=== PATIENT | female | born 1945 | race Caucasian/White ===

== ENCOUNTER 2020-10-22 07:20 | Outpatient (REF) | payer MEDICARE, SELFPAY ==
--- NOTE | ~2020-10-22 | MM_ITS ---
EXAMINATION: MM SCREENING DIGITAL BREAST TOMOSYNTHESIS, BILATERAL CLINICAL INFORMATION: Screening. Asymptomatic. The lifetime risk of breast cancer based on the Tyrer-Cuzick Model is 6%. COMPARISON: Mammography: 08/13/2019, 08/07/2018, 08/01/2017, 07/25/2016 TECHNIQUE: Digital breast tomosynthesis is performed in both the craniocaudal and mediolateral oblique views along with computer-aided detection (CAD). Synthesized 2D images are generated from the tomosynthesis. FINDINGS: The breasts are heterogeneously dense, which may obscure small masses (ACR BI-RADS breast composition Category c). Parenchymal pattern is similar to prior studies considering variation in shifting fibroglandular densities with positioning from year to year. Again, there is fibronodular parenchymal pattern with scattered similar asymmetry on each side. There is no developing density or interval significant mass or architectural abnormality. Benign-appearing loosely grouped calcifications are again noted central left breast. The axilla and skin contours are unremarkable. No significant changes. MM/MM tomosynthesis screening BI IMPRESSION: No significant changes from prior exams. ASSESSMENT: BI-RADS 2: Benign RECOMMENDATION: Routine annual mammography screening. This patient's information was entered into a reminder system with a target due date for their next mammogram.
== END 2020-10-22 07:21 | disposition home or self-care (01) ==
LOC: HO.MAMMO 07:20
PROVIDERS: PCP Internal Medicine; Visit Provider Internal Medicine
DX: Z12.31 Encounter for screening mammogram for malignant neoplasm of breast (principal)
CPT/HCPCS: 77063; 77067

== ENCOUNTER 2021-02-27 08:03 | Outpatient (REF) | payer MEDICARE, SELFPAY ==
--- NOTE | ~2021-02-27 | MM_ITS ---
EXAMINATION: BONE DENSITOMETRY CLINICAL INDICATION: Screening for osteoporosis. COMPARISON: Previous BD dated 11/12/2018 and baseline BD dated 09/17/2006. TECHNIQUE: Using a [employer] DXA System (software version: 13.1) manufactured by [employer], dual-energy x-ray absorptiometry was performed of the lumbar spine and left hip. The images are of good technical quality. Summary results are attached. FINDINGS: AP SPINE L1-L4: Current: BMD 0.956 g/cm2, Z-score -0.5, T-score -1.9, osteopenia, 4.8% increase from previous, 4.9% increase from baseline (<5% change is not significant). Prior: BMD 0.912 g/cm2. Baseline: BMD 0.911 g/cm2. LEFT FEMUR, NECK: Current: BMD 0.773 g/cm2, Z-score -0.2, T-score -1.9, osteopenia. Prior: BMD 0.771 g/cm2. Baseline: BMD 0.815 g/cm2. LEFT FEMUR, TOTAL: Current: BMD 0.818 g/cm2, Z-score -0.1, T-score -1.5, osteopenia, 0.1% decrease from previous, 5.7% decrease from baseline (<5% change is not significant). Prior: BMD 0.819 g/cm2. Baseline: BMD 0.867 g/cm2. IDENTIFIED RISK FACTORS: Early menopause, family history (parent hip fracture), history of fracture (adult), hysterectomy, left oophorectomy, secondary osteoporosis. HISTORY OF FRACTURE: Wrist. MEDICATIONS: Calcium, vitamin D, bisphosphonate. MM/XR DEXA axial skeleton IMPRESSION: 1. DIAGNOSIS: Osteopenia based on the lowest T-score value of -1.9 in the lumbar spine and femur neck applying World Health Organization criteria. 2. 10-YEAR FRACTURE RISK PREDICTION, FRAX: Major osteoporotic fracture (clinical spine, forearm, hip or shoulder) 29.8%. Hip fracture 14.9%. 3. Treatment Recommendations: NOF guidelines recommend consideration for treatment in postmenopausal women and men age 50 and older presenting with the following: -A hip or vertebral (clinical or morphometric) fracture. -T-score less than or equal to -2.5 at the femoral neck or spine after appropriate evaluation to exclude secondary causes. -Low bone mass at the hip or spine and a 10-year fracture probability by FRAX of greater than or equal to 3% for hip fracture or greater than or equal to 20% for major osteoporotic fracture based on the [place] adapted WHO algorithm. 4. Other Recommendations: All treatment decisions require clinical judgment and consideration of individual patient factors, including patient preferences, comorbidities, previous drug use, risk factors not captured in the FRAX model (e.g. frailty, falls, vitamin D deficiency, increased bone turnover, interval significant decline in bone density) and possible under or overestimation of fracture risk by FRAX. Additional medical evaluation for secondary cause of low bone mineral density may be appropriate. FUTURE SCAN RECOMMENDATION: People with diagnosed cases of osteoporosis or at high risk for fracture should have regular bone mineral density tests. For patients eligible for Medicare, routine testing is allowed once every 2 years. The testing frequency can be increased to one year for patients who have rapidly progressing disease, those who are receiving or discontinuing medical therapy to restore bone mass, or have additional risk factors.
== END 2021-02-27 08:04 | disposition home or self-care (01) ==
LOC: HO.MAMMO 08:03
PROVIDERS: PCP Internal Medicine; Visit Provider Internal Medicine
DX: Z13.820 Encounter for screening for osteoporosis (principal); M81.0 Age-related osteoporosis without current pathological fracture; M85.80 Other specified disorders of bone density and structure, unspecified site; Z78.0 Asymptomatic menopausal state; Z98.890 Other specified postprocedural states; Z90.721 Acquired absence of ovaries, unilateral; Z79.899 Other long term (current) drug therapy
CPT/HCPCS: 77080

== ENCOUNTER 2021-10-23 08:32 | Outpatient (REF) | payer MEDICARE, SELFPAY ==
--- NOTE | ~2021-10-23 | MM_ITS ---
EXAMINATION: MM SCREENING DIGITAL BREAST TOMOSYNTHESIS, BILATERAL CLINICAL INFORMATION: Screening. Asymptomatic. The lifetime risk of breast cancer based on the Tyrer-Cuzick Model is 6%. COMPARISON: Mammography: 10/22/2020, 08/13/2019, 08/07/2018 TECHNIQUE: Digital breast tomosynthesis is performed in both the craniocaudal and mediolateral oblique views along with computer-aided detection (CAD). Synthesized 2D images are generated from the tomosynthesis. FINDINGS: The breasts are heterogeneously dense, which may obscure small masses (ACR BI-RADS breast composition Category c). There is fibronodular parenchymal pattern and scattered stable asymmetries similar to prior studies. No developing density or significant mass or architectural abnormality. The loosely grouped calcifications central left breast are similar to prior studies. No abnormal calcifications. The axilla and skin contours are unremarkable. There are no significant changes from prior exams. MM/MM tomosynthesis screening BI IMPRESSION: No mammographic evidence of malignancy. ASSESSMENT: BI-RADS 2: Benign RECOMMENDATION: Routine annual mammography screening. This patient's information was entered into a reminder system with a target due date for their next mammogram.
== END 2021-10-23 08:33 | disposition home or self-care (01) ==
LOC: HO.MAMMO 08:32
PROVIDERS: PCP Internal Medicine; Visit Provider Internal Medicine
DX: Z12.31 Encounter for screening mammogram for malignant neoplasm of breast (principal)
CPT/HCPCS: 77063; 77067

== ENCOUNTER 2022-11-04 07:58 | Outpatient (REF) | payer MEDICARE, SELFPAY ==
--- NOTE | ~2022-11-04 | MM_ITS ---
EXAMINATION: MM SCREENING DIGITAL BREAST TOMOSYNTHESIS, BILATERAL CLINICAL INFORMATION: Screening. Asymptomatic. The lifetime risk of breast cancer based on the Tyrer-Cuzick Model is 5%. COMPARISON: Mammography: 10/23/2021, 10/22/2020, 08/13/2019 TECHNIQUE: Digital breast tomosynthesis is performed in both the craniocaudal and mediolateral oblique views along with computer-aided detection (CAD). Synthesized 2D images are generated from the tomosynthesis. FINDINGS: The breasts are heterogeneously dense, which may obscure small masses (ACR BI-RADS breast composition Category c). Parenchymal pattern is similar to prior studies. There is fibronodular pattern with scattered stable asymmetries similar to prior exams. There are no significant masses, abnormal calcifications, or other abnormalities. No developing density or architectural abnormality. Loosely grouped benign calcifications again seen central left breast. The axilla and skin contours are unremarkable. MM/MM tomosynthesis screening BI IMPRESSION: No mammographic evidence of malignancy. ASSESSMENT: BI-RADS 2: Benign RECOMMENDATION: Routine annual mammography screening. This patient's information was entered into a reminder system with a target due date for their next mammogram.
== END 2022-11-04 07:59 | disposition home or self-care (01) ==
LOC: HO.MAMMO 07:58
PROVIDERS: PCP Internal Medicine; Visit Provider Internal Medicine
DX: Z12.31 Encounter for screening mammogram for malignant neoplasm of breast (principal)
CPT/HCPCS: 77063; 77067

== ENCOUNTER 2023-11-10 08:04 | Outpatient (REF) | payer MEDICARE, SELFPAY ==
--- NOTE | ~2023-11-10 | MM_ITS ---
EXAMINATION: BONE DENSITOMETRY CLINICAL INDICATION: Age-related osteoporosis without current pathological fracture. COMPARISON: Previous BD dated 02/27/2021 and baseline BD dated 09/17/2006. TECHNIQUE: Using a [employer] DXA System (software version: 13.1) manufactured by [employer], dual-energy x-ray absorptiometry was performed of the lumbar spine and left hip. The images are of good technical quality. Summary results are attached. FINDINGS: LEFT FEMUR, NECK: Current: BMD 0.792 g/cm2, Z-score 0.0, T-score -1.8, osteopenia. Prior: BMD 0.773 g/cm2. Baseline: BMD 0.815 g/cm2. LEFT FEMUR, TOTAL: Current: BMD 0.808 g/cm2, Z-score 0.0, T-score -1.6, osteopenia, 1.2% decrease from previous, 6.8% decrease from baseline (<5% change is not significant). Prior: BMD 0.818 g/cm2. Baseline: BMD 0.867 g/cm2. AP SPINE L1-L4: Current: BMD 0.858 g/cm2, Z-score -1.2, T-score -2.7, osteoporosis, 10.3% decrease from previous, 5.8% decrease from baseline (<5% change is not significant). Prior: BMD 0.956 g/cm2. Baseline: BMD 0.911 g/cm2. IDENTIFIED RISK FACTORS: Early menopause, hysterectomy, family history (parent hip fracture), left oophorectomy, history of fracture (adult). HISTORY OF FRACTURE: Wrist. MEDICATIONS: Vitamin D, calcium, bisphosphonate. MM/XR DEXA axial skeleton IMPRESSION: 1. DIAGNOSIS: Severe osteoporosis based on the lowest T-score value of -2.7 in the lumbar spine and history of fracture of wrist applying World Health Organization criteria. 2. 10-YEAR FRACTURE RISK PREDICTION, FRAX: According to the guidelines, FRAX calculation should only be performed on patients in the osteopenia bone density category. Therefore, FRAX was not performed on this patient. 3. Treatment Recommendations: NOF guidelines recommend consideration for treatment in postmenopausal women and men age 50 and older presenting with the following: -A hip or vertebral (clinical or morphometric) fracture. -T-score less than or equal to -2.5 at the femoral neck or spine after appropriate evaluation to exclude secondary causes. -Low bone mass at the hip or spine and a 10-year fracture probability by FRAX of greater than or equal to 3% for hip fracture or greater than or equal to 20% for major osteoporotic fracture based on the [place] adapted WHO algorithm. 4. Other Recommendations: All treatment decisions require clinical judgment and consideration of individual patient factors, including patient preferences, comorbidities, previous drug use, risk factors not captured in the FRAX model (e.g. frailty, falls, vitamin D deficiency, increased bone turnover, interval significant decline in bone density) and possible under or overestimation of fracture risk by FRAX. Additional medical evaluation for secondary cause of low bone mineral density may be appropriate. FUTURE SCAN RECOMMENDATION: People with diagnosed cases of osteoporosis or at high risk for fracture should have regular bone mineral density tests. For patients eligible for Medicare, routine testing is allowed once every 2 years. The testing frequency can be increased to one year for patients who have rapidly progressing disease, those who are receiving or discontinuing medical therapy to restore bone mass, or have additional risk factors.
--- NOTE | ~2023-11-10 | MM_ITS ---
EXAMINATION: MM SCREENING DIGITAL BREAST TOMOSYNTHESIS, BILATERAL CLINICAL INFORMATION: Screening. Asymptomatic. COMPARISON: Mammography: This study is compared with prior exams dating back to 2019. TECHNIQUE: Digital breast tomosynthesis is performed in both the craniocaudal and mediolateral oblique views along with computer-aided detection (CAD). Synthesized 2D images are generated from the tomosynthesis. FINDINGS: The breasts are heterogeneously dense, which may obscure small masses (ACR BI-RADS breast composition Category c). There are no significant masses, abnormal calcifications, or other abnormalities. There is an asymmetry of the right breast CC projection which lies just lateral to the posterior nipple line and at a middle depth. There is a second asymmetry of the right breast in the MLO projection which occurs in the posterior nipple line and at a middle depth. Both of these warrant additional mammographic and targeted sonographic imaging. There are benign calcifications in the upper outer quadrant of the left breast. There is minor architectural change in the upper outer quadrant of the left breast related to prior benign excision. No mammographic signs of malignancy in the right breast. MM/MM tomosynthesis screening BI IMPRESSION: 2 separate asymmetries of the right breast warrant additional mammographic and targeted sonographic imaging area No mammographic signs of malignancy of the right breast. ASSESSMENT: BI-RADS BI-RADS 0 - Incomplete: Needs additional Imaging. RECOMMENDATION: 1. Additional views of the right breast 2. Targeted ultrasound if warranted after review of the additional views. 3. Radiology department staff will contact the patient for additional imaging. Additional Imaging required This examination should not preclude the clinical evaluation of a suspicious palpable abnormality. This patient's information was entered into a reminder system with a target due date for their next mammogram.
== END 2023-11-10 08:05 | disposition home or self-care (01) ==
LOC: HO.MAMMO 08:04
PROVIDERS: PCP Internal Medicine; Visit Provider Internal Medicine
DX: Z12.31 Encounter for screening mammogram for malignant neoplasm of breast (principal); Z13.820 Encounter for screening for osteoporosis; Z78.0 Asymptomatic menopausal state; M81.0 Age-related osteoporosis without current pathological fracture
CPT/HCPCS: 77063; 77067; 77080

== ENCOUNTER → 2023-11-10 08:30 | Outpatient (BNV) | payer MEDICARE, SELFPAY | PROVIDERS: PCP Internal Medicine; Visit Provider Radiology Diagnostic Radiology | DX: Z12.31 Encounter for screening mammogram for malignant neoplasm of breast (principal) | CPT/HCPCS: 77063; 77067 ==

== ENCOUNTER 2023-12-29 13:45 | Outpatient (REF) | payer MEDICARE, SELFPAY ==
--- NOTE | ~2023-12-29 | MM_ITS ---
EXAMINATION: MM DIAGNOSTIC DIGITAL BREAST TOMOSYNTHESIS, RIGHT CLINICAL INFORMATION: Diagnostic follow-up for one view asymmetry right CC view, and one view asymmetry right MLO view. COMPARISON: Mammography: 11/10/2023. TECHNIQUE: Digital breast tomosynthesis is performed. 2D images are generated from the tomosynthesis. The following views are obtained: Full-field 3-D right ML view, as well as spot compression 3-D views right MLO x2, and right CC x1. FINDINGS: The breasts are heterogeneously dense, which may obscure small masses (ACR BI-RADS breast composition Category c). Additional views demonstrate no persistent asymmetry, suspicious mass, area of architectural distortion, or other abnormality. Findings are consistent with superimposition artifact of normal overlapping tissues. MM/MM tomosynthesis added views R IMPRESSION: No persistent findings suspicious for malignancy. Recommend the patient resume routine annual screening. ASSESSMENT: BI-RADS BI-RADS 1 - Negative RECOMMENDATION: 1 year F/U Results were provided to the patient at time of visit by the technologist. This patient's information was entered into a reminder system with a target due date for their next mammogram.
== END 2023-12-29 13:46 | disposition home or self-care (01) ==
LOC: HO.MAMMO 13:45
PROVIDERS: PCP Internal Medicine; Visit Provider Internal Medicine
DX: N64.89 Other specified disorders of breast (principal)
CPT/HCPCS: 77061; 77065

== ENCOUNTER → 2023-12-29 14:00 | Outpatient (BNV) | payer MEDICARE, SELFPAY | PROVIDERS: PCP Internal Medicine; Visit Provider Radiology Diagnostic Radiology | DX: R92.8 Other abnormal and inconclusive findings on diagnostic imaging of breast (principal) | CPT/HCPCS: 77065; G0279 ==

== ENCOUNTER 2024-12-08 08:25 | Outpatient (REF) | payer MEDICARE, SELFPAY ==
--- OUTSIDE RECORDS SUMMARY | 2024-12-08 08:28 | XMS_ITS | Continuity of Care Document ---
Author Organization [facility] [address] [place] [address] Phone [phone] Care Team Providers Care Adaptive Physical Educator Name Role Phone Tomas Can M.D. Care Team Information Receive r [phone] Problems Active Problems Provider Date Osteoporosis JOSE MARIA Valentino Onset: 2023 Essential hypertension JOSE MARIA Valentino Onset: 12/25/2023 Gastroesophageal reflux disease JOSE MARIA Valentino Onset: 12/25/2023 Social History Type Date Description Comments Sex Female Sex Unknown Marital Status Legal Status: ETOH Use Occasionally consumes alcoho l Tobacco Use Start: Unknown End: Unknown Patient is a former smoker Allergies and adverse reactions Active Allergies Criticality Reaction Severity Comments Date Risedronate Unable to assess criticality 12/25/2023 Tetracycline Unable to assess criticality 12/25/2023 Raloxifene Unable to assess criticality 12/25/2023 Medications Active Medications SIG Qnty Indications Ordering Provider Date [id number] Tablets Take 1 Tablet By Mouth Every Day In The Evening For 90 Days Tomas Can M.D. Amlodipine Besylate2.5mg Tablets Take 1 Tablet By Mouth Every Day Tomas Can M.D. [id number] Capsules DR Take 1 Capsule By Mouth 30 Minutes Before Morning Meal Every Day For 90 Days Tomas Can M.D. Azelaic Acid15% Gel Zi Santos M.D. Vital Signs Date Vital Result Comment 11/28/2024 9:03am BP Systolic 120 mmHg BP Diastolic 90 mmHg Heart Rate 66 /min Height 62 inches 5'2 Weight 168.25 lb BMI (Body Mass Index) 30.8 kg/m2 Results Test Acquired Date Facility Test Result H/L Range N ote N-Telopeptide, Urine 11/15/2024 [facility] N-Telopeptide 305 nmolBCE Not Estab. Creatinine, Urine 72.5 mg/dL Not Estab. N-Telo/Creat. Ratio 48 nMBCE/mMCr 0-89 Interpretive Guide: See Comment: 1 Calcium 11/14/2024 [facility] Calcium 9.8 mg/dL 8.7-10.3 Vitamin D, 25-Hydroxy 11/14/2024 [facility] Vitamin D, 25-Hydroxy 59.0 ng/mL 30.0-100. 0 2 Albumin 11/14/2024 [facility] Albumin 4.4 g/dL 3.8-4.8 N-Telopeptide, Urine 11/14/2024 [facility] N-Telopeptide TNP nmolBCE 3 Creatinine, Urine TNP 4 N-Telo/Creat. Ratio TNP Interpretive Guide: TNP PTH, Intact 11/14/2024 [facility] PTH, Intact 41 pg/mL 15-65 Phosphorus 11/14/2024 [facility] Phosphorus 3.4 mg/dL 3.0-4.3 Request Problem 11/14/2024 [facility] Request Problem TNP 5 Comp. Metabolic Panel (14) 01/04/2024 [facility] Glucose 128 mg/dL High 70-99 BUN 11 mg/dL 8-27 Creatinine 0.61 mg/dL 0.57-1.00 eGFR 92 mL/min/1.73 >59 BUN/Creatinine Ratio 18 12-28 Sodium 138 mmol/L 134-144 Potassium 4.1 mmol/L 3.5-5.2 Chloride 101 mmol/L 96-106 Carbon Dioxide, Total 21 mmol/L 20-29 Calcium 10.4 mg/dL High 8.7-10.3 Protein, Total 6.9 g/dL 6.0-8.5 Albumin 4.4 g/dL 3.8-4.8 Globulin, Total 2.5 g/dL 1.5-4.5 Bilirubin, Total 0.3 mg/dL 0.0-1 .2 Alkaline Phosphatase 67 IU/L 44-121 Ast (Sgot) 17 IU/L 0-40 Alt (SGPT) 14 IU/L 0-32 CBC With Differential/Pl atelet 01/04/2024 [facility] WBC 6.3 x10E3/uL 3.4-10.8 RBC 4.72 x10E6/uL 3.77-5.28 Hemoglobin 13.8 g/dL 11.1-15.9 Hematocrit 41.5 % 34.0-46.6 MCV 88 fL 79-97 MCH 29.2 pg 26.6-33.0 MCHC 33.3 g/dL 31.5-35.7 RDW 12.5 % 11.7-15.4 Platelets 311 x10E3/uL 150-450 Neutrophils 54 % Not Estab. Lymphs 33 % Not Estab. Monocytes 10 % Not Estab. Eos 1 % Not Estab. Basos 1 % Not Estab. Immature Cells TNP Neutrophils (Absolute) 3.4 x10E3/uL 1.4-7.0 Lymphs (Absolute) 2.1 x10E3/uL 0 .7-3.1 Monocytes(Absol ut e) 0.6 x10E3/uL 0.1-0.9 Eos (Absolute) 0.1 x10E3/uL 0.0- 0.4 Baso (Absolute) 0.0 x10E3/uL 0.0 -0.2 Immature Granulocytes 1 % Not Estab. Immature Grans (Abs) 0.1 x10E3/uL 0.0-0.1 NRBC TNP Hematology Comments: TNP TSH Rfx on Abnormal to Free T4 01/04/2024 [facility] TSH Rfx on Abnormal to Free T4 1.970 uIU/mL 0.450-4.5 00 Vitamin D, 25-Hydroxy 01/04/2024 [facility] Vitamin D, 25-Hydroxy 32.3 ng/mL 30.0-100. 0 6 N-Telopeptide, Urine 01/04/2024 [facility] N-Telopeptide 187 nmolBCE Not Estab. Creatinine, Urine 45.5 mg/dL Not Estab. N-Telo/Creat. Ratio 46 nMBCE/mMCr 0-89 Interpretive Guide: See Comment: 7 PTH, Intact 01/04/2024 [facility] PTH, Intact 22 pg/mL 15-65 Phosphorus 01/04/2024 [facility] Phosphorus 3.7 mg/dL 3.0-4.3 1 The N-telopeptide an d Creatinine are used to calculate the N-telo/Creat. Ratio which is referred to as NTx . Suggested guidelines for the clinical use of NTx are as follows: 1. Menopausal Women not on Hormone Replacement Therapy (HRT): Women with a baseline NTx value >38 are at significant risk for a decrease in bone mineral density (BMD) after 1 year compared to women on HRT. The probability of a decline in BMD increases with NTx value as follows: (1): Baseline NTx Probability of Decrease in BMD 18- 38 1.4 p=0.28 38- 51 2.5 p=0.03 51- 67 3.8 p=0.0006 67-188 17.3 p=0.0001 2. Menopausal Women Receiving Antiresorptive Therapy: The probability that treatment is effective after three months is increased when the measured NTx value is <or=38 nM BCE/mM BOTTOM SCRUBBER, or NTx has decreased >or=30% from baseline.[1] 3. Patients with Paget's Disease of Bone: The probability that treatment is effective after one month is increased when the measured NTx value is within the reference range, or NTx has decreased >or=30% from baseline.[2] 1. Marley CH, Barrera NH, Teofilo GS, et al. Am J Med, 102:29-37,1997. (1):M757, 1996. 2. Bone H, Jey J, et al. J Bone Min Res.11(1):M757,1996 2 Vitamin D deficiency has been defined by the [place] and an Endocrine Society practice guideline as a level of serum 25-OH vitamin D less than 20 ng/mL (1,2). The Endocrine Society went on to further define vitamin D insufficiency as a level between 21 and 29 ng/mL (2). 1. IOM ([place]). 2010. Dietary reference intakes for calcium and D. [place]: The National Academies Press. 2. Malgorzata MF, Cristobal MCGILL, Kiki LANGLEY, et al. Evaluation, treatment, and prevention of vitamin D deficiency: an Endocrine Society clinical practice guideline. JCEM. 2010; 96(7):1911-30. 3 Test not performed. Patient was unable to provide a self-collected specimen for the requested testing. The following test(s) were not performed: 4 Test not performed 5 Test not performed. Patient was unable to provide a self-collected specimen for the requested testing. The following test(s) were not performed: TEST: [id number] N-Telopeptide, Urine 6 Vitamin D deficiency has been defined by the [place] and an Endocrine Society practice guideline as a level of serum 25-OH vitamin D less than 20 ng/mL (1,2). The Endocrine Society went on to further define vitamin D insufficiency as a level between 21 and 29 ng/mL (2). 1. IOM ([place]). 2010. Dietary reference intakes for calcium and D. [place]: The National AcademRadio Systemes [employer] Press. 2. Malgorzata MF, Cristobal NC, Kiki LANGLEY, et al. Evaluation, treatment, and prevention of vitamin D deficiency: an Endocrine Society clinical practice guideline. JCEM. 2010; 96(7):1911-30. 7 The N-telopeptide an d Creatinine are used to calculate the N-telo/Creat. Ratio which is referred to as NTx . Suggested guidelines for the clinical use of NTx are as follows: 1. Menopausal Women not on Hormone Replacement Therapy (HRT): Women with a baseline NTx value >38 are at significant risk for a decrease in bone mineral density (BMD) after 1 year compared to women on HRT. The probability of a decline in BMD increases with NTx value as follows: (1): Baseline NTx Probability of Decrease in BMD 18- 38 1.4 p=0.28 38- 51 2.5 p=0.03 51- 67 3.8 p=0.0006 67-188 17.3 p=0.0001 2. Menopausal Women Receiving Antiresorptive Therapy: The probability that treatment is effective after three months is increased when the measured NTx value is <or=38 nM BCE/mM BOTTOM SCRUBBER, or NTx has decreased >or=30% from baseline.[1] 3. Patients with Paget's Disease of Bone: The probability that treatment is effective after one month is increased when the measured NTx value is within the reference range, or NTx has decreased >or=30% from baseline.[2] 1. Marley CH, [place] NH, Teofilo GS, et al. Am J Med, 102:29-37,1997. (1):M757, 1996. 2. Bone H, Jey J, et al. J Bone Min Res.11(1):M757,1996 Medical Devices Description No Information Available Encounters Type Date Location Provider Dx Diagnosis Office Visit 11/28/2024 8:45a Main Office JOSE MARIA Valentino M81.0 Age-related osteoporosis w/o current pathological fracture Assessments Date Code Description Provider 11/28/2024 M81.0 Age-related oste oporosis without current pathological fracture JOSE MARIA Valentino Plan of Treatment Future Appointment(s):* 12/11/2025 8:00 am - Sheron Ordoñez NP at Main Office 01/27/2024 - JOSE MARIA Valentino* M81.0 Age-related osteoporosis without current pathological fracture Functional Status Description No Information Available Mental Status Description No Information Available Referrals Description No Information Available
--- OUTSIDE RECORDS SUMMARY | 2024-12-08 08:29 | XMS_ITS | Patient Health Record ---
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 Name Role Phone Tomas Can MD Primary Care Provider UnavailRamon Nice Jr Unavailable Allergies Allergen (clinical drug ingredient) Drug/Non Drug Allergy documented on EMR Reaction Allergy Type Onset Date Status tetracycline Tetracycline HCl Unknown Drug Allergy Active Reason For Referral No Information Medications Medication SIG (Take, Route, Fr equency, Duration) Notes Start Date End Date Status Evista 60 MG 1 tablet Orally Once a day Active Remifemin Active Omeprazole 20 MG 1 capsule Orally Once a day Active Suprep Bowel Prep 1 as directed Orally 1 for 1 dose 06/23/2014 Active Problems Problem Type SNOMED Code ICD Code Onset Dates Problem Status W/U Status Risk Notes Problem [id number] Esophageal reflu x (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.81) Active confirmed Problem 40080595 Constipation (564.00) Active confirmed Problem 509143489 Colon cancer screening (V76.51) Active confirmed Plan Of Treatment Future Test Test Name Order Date COLONOSCOPY 06/23/2014 Insurance Providers Payer Name Payer Address Payer Phone Subscriber Number Group Number Insured Name Patient Relationship to Insured Coverage Start Date Coverage End Date MEDICARE OF [place] [address] [place] [address] [id number] TIFFANIE CONNOR Self - patient is the insured [employer] ATT[employer] CLAIMS [address] [place] [address] [id number] TIFFANIE CONNOR Self - patient is the insured Medical (General) History Medical History History ICD Code Colonoscopy, 2002, hyperplastic polyp 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
== END 2024-12-08 08:26 | disposition home or self-care (01) ==
LOC: HO.MAMMO 08:25
PROVIDERS: PCP Internal Medicine; Visit Provider Internal Medicine
DX: Z12.31 Encounter for screening mammogram for malignant neoplasm of breast (principal)
CPT/HCPCS: 77063; 77067

== ENCOUNTER → 2024-12-08 08:45 | Outpatient (BNV) | payer MEDICARE, SELFPAY | PROVIDERS: PCP Internal Medicine; Visit Provider Internal Medicine | DX: Z12.31 Encounter for screening mammogram for malignant neoplasm of breast (principal) | CPT/HCPCS: 77063; 77067 ==

== ENCOUNTER 2024-12-27 09:51 | Outpatient (REF) | payer MEDICARE, SELFPAY ==
--- NOTE | ~2024-12-27 | MM_ITS ---
EXAMINATION: MM DIAGNOSTIC DIGITAL BREAST TOMOSYNTHESIS, LEFT CLINICAL INFORMATION: Callback from screening for left breast asymmetry on the CC view COMPARISON: Comparison made to multiple prior, most recent November 08, 2024, and most remote August 01, 2017. TECHNIQUE: Digital breast tomosynthesis is performed in both the craniocaudal and mediolateral oblique views along with computer-aided detection (CAD). Synthesized 2D images are generated from the tomosynthesis. Spot compression tomosynthesis images were also obtained. FINDINGS: BREAST COMPOSITION: The breasts are heterogeneously dense, which may obscure small masses (ACR BI-RADS breast composition Category c). LEFT BREAST: Previously suggested asymmetry in the retroareolar region anterior depth on the CC view is pliable with the spot compression; local parenchyma is similar to multiple prior studies as far back as 2017, and likely represented overlapping fibroglandular breast tissue. MM/MM tomosynthesis added views L IMPRESSION: LEFT BREAST: Negative, no mammographic evidence of malignancy. Normal interval follow-up is recommended in 12 months. ASSESSMENT: BI-RADS BI-RADS 1 - Negative RECOMMENDATION: 1 year F/U Results were provided to the patient at time of visit by the technologist. This patient's information was entered into a reminder system with a target due date for their next mammogram. Electronically signed by: Lyubov Munoz MD 12/27/2024 04:29 PM EDT
--- OUTSIDE RECORDS SUMMARY | 2024-12-27 10:38 | XMS_ITS | Patient Health Record ---
Author Organization [facility] Address [address] [place] [address] Care Team Providers Care Licensed Surveyor Name Role Phone Tomas Can MD Primary [...] Problem Status W/U Status Risk Notes Problem [id number] Esophageal reflu x (530.81) Active confirmed Problem 10209878 Constipation (564.00) Active confirmed Problem 182578929 Colon cancer screening (V76.51) Active confirmed Plan Of Treatment Future Test Test Name Order Date COLONOSCOPY 06/23/2014 Insurance Providers Payer Name Payer Address Payer Phone Subscriber Number Group Number Insured Name Patient Relationship to Insured Coverage Start Date Coverage End Date MEDICARE OF [place] [address] [place] [address] [id number] TIFFANIE CONNOR Self - patient is the insured MED[employer] ATTN CLAIMS [address] [place] [address] [id number] TIFFANIE CONNOR Self - patient is the insured Medical (General) History Medical History History ICD Code Colonoscopy, 2002, hyperplastic polyp 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
--- OUTSIDE RECORDS SUMMARY | 2024-12-27 10:38 | XMS_ITS | Continuity of Care Document ---
Author Organization [facility] [address] [place] [address] Phone [phone] Care Team Providers Care Labor Trainer Name Role Phone Tomas Can M.D. Care Team Information Receive r [phone] Problems Active Problems Provider Date Osteoporosis JOSE [...] Medications SIG Qnty Indications Ordering Provider Date [id number] Tablets Take 1 Tablet By Mouth Every Day In The Evening For 90 Days Tomas Can M.D. Amlodipine Besylate2.5mg Tablets Take 1 Tablet By Mouth Every Day Tomas Can M.D. Iznetxsymw23cg Capsules DR Take 1 Capsule By Mouth [...] measured NTx value is <or=38 nM BCE/mM [employer]NA[employer], or NTx has decreased >or=30% from baseline.[1] [...] D deficiency has been defined by the [place] [employer] and an Endocrine Society practice guideline as a level of serum 25-OH vitamin D less than 20 ng/mL (1,2). The Endocrine Society went on to further define vitamin D insufficiency as a level between 21 and 29 ng/mL (2). 1. IOM ([place] of [employer]). 2010. Dietary reference intakes for [...] The following test(s) were not performed: TEST: [id number] N-Telopeptide, Urine 6 Vitamin D deficiency has been defined by the [place] [employer] and an Endocrine Society practice guideline as a level of serum 25-OH vitamin D less than 20 ng/mL (1,2). The Endocrine Society went on to further define vitamin D insufficiency as a level between 21 and 29 ng/mL (2). 1. IOM ([place] [employer]). 2010. Dietary reference intakes for calcium and D. [place]: The National AcademPhotomedex Press. 2. Malgorzata MF, Cristobal [place], Kiki [...] measured NTx value is <or=38 nM BCE/mM [employer], or NTx has decreased >or=30% from baseline.[1] [...]
== END 2024-12-27 09:52 | disposition home or self-care (01) ==
LOC: HO.MAMMO 09:51
PROVIDERS: PCP Internal Medicine; Visit Provider Internal Medicine
DX: N64.89 Other specified disorders of breast (principal)
CPT/HCPCS: 77061; 77065

== ENCOUNTER → 2024-12-27 10:00 | Outpatient (BNV) | payer MEDICARE, SELFPAY | PROVIDERS: PCP Internal Medicine; Visit Provider Radiology Body Imaging | DX: R92.8 Other abnormal and inconclusive findings on diagnostic imaging of breast (principal); R92.332 Mammographic heterogeneous density, left breast | CPT/HCPCS: 77065; G0279 ==